=== PATIENT | male | born 1965 | race Caucasian/White ===

== ENCOUNTER 2017-01-23 12:13 | Emergency (ER) | payer SELFPAY ==
[~2017-01-23] VITALS: Ht 167.6 cm; Wt 70.0 kg
[~2017-01-23 12:13] MED LIST: IBUP800T23 PO; ROBA750T3 PO
[2017-01-23 12:14] VITALS: BP 135/93; PULSE 83; RESP 16; TEMP 97.8; O2SAT 95
--- NOTE | 2017-01-23 13:52 | PD ---
HPI Chief Complaint: Respiratory Symptoms Time Seen by Provider: 13:52 Travel History International Travel<30 days: No Contact w/Intl Traveler<30days: No Traveled to known affect area: No History of Present Illness HPI 51 YO M presents to the ED for evaluation of 1 week history of nonproductive cough, sinus congestion, yellow rhinorrhea. Patient denies fevers, chest pain, palpitations, nausea, vomiting. He is a current smoker. He denies known sick contacts. No treatment attempted at home. PFSH Past Medical History Blood Disorders: No Cancer: No Chest Pain: Yes Headaches: Yes Hypertension: Yes Psychiatric: No Tetanus Vaccination: < 5 Years Past Surgical History Surgical History: No Previous Surgery Genitourinary Surgery: No Social History Alcohol Use: Yes (-LAST TIME USED THIS am) Tobacco Use: Yes Substance Use: No Allergies-Medications (Allergen,Severity, Reaction): Coded Allergies: naproxen (Unverified Allergy, Severe, LIPS SWELL UP, 01/23/17) Reported Meds & Prescriptions Reported Meds & Active Scripts Active Tessalon Perles (Benzonatate) 100 Mg Cap 200 Mg PO TID PRN 5 Days Azithromycin 250 Mg Tab 250 Mg PO DIRECTED Take 2 tabs (500 mg) on day 1 then 1 tab daily x 4 days. Review of Systems Except as stated in HPI: all other systems reviewed are Neg Physical Exam Narrative GENERAL: Well-nourished, well-developed white male in no acute distress. SKIN: Warm and dry. HEAD: Normocephalic. Atraumatic. EYES: No scleral icterus. No injection or drainage. PERRLA. EOMI. ENT: Pearly sarmiento tympanic membranes bilaterally. Nasal mucosa is moist. Oropharynx without erythema, edema or exudate. NECK: Supple, trachea midline. No JVD or lymphadenopathy. CARDIOVASCULAR: Regular rate and rhythm without murmurs, gallops, or rubs. . RESPIRATORY: Breath sounds clear and equal bilaterally. No accessory muscle use. GASTROINTESTINAL: Abdomen soft, non-tender, nondistended. + Bowel sounds MUSCULOSKELETAL: No cyanosis, or edema. BACK: Nontender without obvious deformity. No CVA tenderness. Data Data Last Documented VS Vital Signs Date Time Temp Pulse Resp B/P (MAP) Pulse Ox O2 Delivery O2 Flow Rate FiO2 01/23/17 14:58 01/23/17 12:14 97.8 83 16 95 Orders Orders Chest, Single Ap (01/23/17 14:09) [facility] Medical Decision Making Medical Screen Exam Complete: Yes Emergency Medical Condition: Yes Differential Diagnosis Viral syndrome versus upper respiratory infection versus bronchitis versus pneumonia versus other Narrative Course 51 YO M presents to the ED for evaluation of 1 week history of nonproductive cough, sinus congestion, yellow rhinorrhea. Patient denies fevers, chest pain, palpitations, nausea, vomiting. He is a current smoker. Vitals reviewed. ENT exam is unremarkable. Chest clear to auscultation bilaterally. Patient is well appearing. No acute disease on CXR. We'll treat for upper respiratory infection. He was prescribed Z-Forrest, Tessalon Perles. He is instructed to refrain from smoking, take antibiotics and cough medicines as prescribed, follow up with his primary care provider. He is stable and discharged home. Diagnosis Primary Impression: Upper respiratory infection Qualified Codes: J06.9 - Acute upper respiratory infection, unspecified Referrals: Primary Care Physician Patient Instructions: General Instructions, Upper Respiratory Infection (ED) Additional Instructions: Rest, hydrate. Take all antibiotics as prescribed. Tessalon Perles as needed for cough. Stop smoking today! Follow-up with primary care provider. Return to the ED for any urgent or emergent medical condition. Med/Other Pt SpecificInfo: Prescription(s) given Scripts Benzonatate (Tessalon Perles) 100 Mg Cap 200 MG PO TID Y for COUGH for 5 Days, CAP 0 Refills Prov: Gonzalez Gomez MD 01/23/17 Azithromycin (Azithromycin) 250 Mg Tab 250 MG PO DIRECTED for Infection, #6 TAB 0 Refills Take 2 tabs (500 mg) on day 1 then 1 tab daily x 4 days. Prov: Gonzalez Gomez MD 01/23/17 Disposition: DISCHARGE HOME Condition: Stable Cathy Jones Jan 23, 2017 13:52
--- NOTE | 2017-01-23 14:45 | RADRPT ---
EXAM DATE/TIME: 01/23/2017 14:18 [facility] COMPARISON: CHEST SINGLE AP, July 02, 2013, 6:22. INDICATIONS : Cough x 3 days. MEDICAL HISTORY : None. SURGICAL HISTORY : None. ENCOUNTER: Initial ACUITY: 1 day PAIN SCORE: 0/10 LOCATION: Bilateral chest FINDINGS: A single view of the chest demonstrates the lungs to be symmetrically aerated without evidence of mas s, infiltrate or effusion. The cardiomediastinal contours are unremarkable. Osseous structures are intact. CONCLUSION: No acute disease. Toni Frazier Jr., MD on January 23, 2017 at 14:42 Board Certified Radiologist. This report was verified electronically.
[2017-01-23] MEDS ORDERED: AZIT250T3 PO (14:48)
[2017-01-23] MEDS ORDERED: BENZ100 PO (14:48)
== END 2017-01-23 14:58 | disposition home or self-care (01) ==
LOC: NEPD 12:13
DX: J06.9 Acute upper respiratory infection, unspecified (principal); I10 Essential (primary) hypertension; Z72.0 Tobacco use; Z79.899 Other long term (current) drug therapy; Z88.8 Allergy status to other drugs, medicaments and biological substances
CPT/HCPCS: 71010; 99284